=== PATIENT | male | born 1945 | race African-American/Black ===

== ENCOUNTER 2017-06-10 07:46 | Emergency (ER) | payer MEDICARE, MEDICAID ==
[~2017-06-10] VITALS: Ht 175.3 cm; Wt 76.2 kg
[~2017-06-10 07:46] MED LIST: ALBUTEROL SULF8.5 GM INH; AMLODIPINE BESYL5 MG ORAL; BENAZEPRIL HCL20 MG ORAL; HYDROCHLOROTHIA25 MG ORAL; KEFLEX500 MG ORAL; LOVASTATIN20 MG ORAL; NORCO 5-325 TA1 EACH ORAL; ZETIA10 MG ORAL; ZITHROMAX250 MG ORAL
[2017-06-10 08:04] VITALS: BP 133/66
[2017-06-10] MEDS ORDERED: Acetaminophen 500mg (ES) tab PO ONE (08:15)
[2017-06-10] MEDS ORDERED: TYLENOL EXTRA500 MG ORAL (08:45)
[2017-06-10 08:57] VITALS: BP 133/66
--- NOTE | 2017-06-10 09:01 | Emergency Room Report ---
History of Present Illness General Chief Complaint: Pain Source: Patient, Medical Record Present Illness HPI 72-year-old male presents ED complaining of right shoulder pain x2 months. Denies any injuries. Pain is 7/10, radiating through the neck. Sharp. Worse with abducting the shoulder. No other aggravating factors. Denies any other associated symptoms Allergies: Coded Allergies: No Known Allergies (Unverified , 10/28/13) Patient History Past Medical History: none Past Surgical History: none Pertinent Family History: none Social History: Denies: smoking, alcohol use, drug use Immunizations: UTD Reviewed Nursing Documentation: PMH: Agreed, PSxH: Agreed Nursing Documentation-PMH Past Medical History: No History, Except For Hx Cardiac Problems: Yes - cholesterol Hx Hypertension: Yes Review of Systems All Other Systems: negative except mentioned in HPI Physical Exam Vital Signs Date Time Temp Pulse Resp B/P (MAP) Pulse Ox O2 Delivery O2 Flow Rate FiO2 06/10/17 07:59 97.5 69 18 133/66 100 Room Air Sp02 EP Interpretation: reviewed, normal General Appearance: no apparent distress, alert, GCS 15, non-toxic Head: normocephalic Eyes: bilateral eye normal inspection, bilateral eye PERRL ENT: normal ENT inspection Neck: full range of motion, supple, no meningismus, no bony tend, supple/symm/ no masses, tender lateral Respiratory: normal inspection Cardiovascular #1: normal inspection Gastrointestinal: normal inspection Rectal: deferred Genitourinary: no CVA tenderness Musculoskeletal: normal inspection, decreased range of motion - R shoulder, tender Neurologic: normal inspection Psychiatric: normal inspection Skin: normal inspection Lymphatic: normal inspection Medical Decision Making Diagnostic Impression: Primary Impression: Shoulder pain Qualified Codes: M25.511 - Pain in right shoulder ER Course Hospital Course 72-year-old M presents to ED complaining of R shoulder pain Differential diagnoses include: Fracture, dislocation, sprain, contusion Clinical course Patient placed on stretcher. After initial history and physical, I ordered pain medications and Xrays of R shoulder Xrays prelim read shows no acute fracture/dislocation. possibly rotator cuff injury vs tendinitis Plan followup with orthopedics. ice, pain meds, rest. States he did not have a PMD. i will give him referrals for PMD and orthopedics Diagnosis - shoulder pain Stable and discharged to home with prescription for tylenol. apply ice, keep elevated. weight bear as tolerated. Followup with PMD/ortho. Return to ED if symptoms recur or worsen Other X-Ray Diagnostic Results Other X-Ray Diagnostic Results : X-Ray ordered: R shoulder # of Views/Limited Vs Complete: 3 View Indication: Pain EP Interpretation: Yes Interpretation: no dislocation, no soft tissue swelling, no fractures Impression: No acute disease Electronically Signed by: Electronically signed by Matheus Bateman MD Last Vital Signs Date Time Temp Pulse Resp B/P (MAP) Pulse Ox O2 Delivery O2 Flow Rate FiO2 06/10/17 08:54 97.5 06/10/17 08:04 18 133/66 100 Room Air 06/10/17 07:59 69 Status: improved Disposition: HOME, SELF-CARE Condition: Stable Scripts Acetaminophen* (TYLENOL EXTRA STRENGTH*) 500 Mg Tablet 500 MG ORAL Q8H Y for Prn Headache/Temp > 101, #30 TAB 0 Refills Prov: MATHEUS BATEMAN M.D. 06/10/17 Referrals: LISA [facility]/,REFERRING (PCP) Pancho Juarez MD Patient Instructions: Shoulder Pain, [id number] MATHEUS BATEMAN M.D. Jun 10, 2017 09:01
--- NOTE | 2017-06-11 10:28 | Diagnostic Imaging Report ---
Indication: Reason For Exam: PAIN Technique: 3 views of the left shoulder Comparison: None Findings: No acute fractures or dislocations. Joint spaces are preserved. Impression: Negative
== END 2017-06-10 08:59 | disposition home or self-care (01) ==
LOC: EMR 08:19
DX: M25.511 Pain in right shoulder (principal); I10 Essential (primary) hypertension
CPT/HCPCS: 99283

== ENCOUNTER 2017-11-30 07:35 | Emergency (ER) | payer MEDICARE, MEDICAID ==
[~2017-11-30] VITALS: Ht 175.3 cm; Wt 74.8 kg
[~2017-11-30 07:35] MED LIST changes: +TYLENOL EXTRA500 MG ORAL
--- NOTE | 2017-11-30 08:06 | Emergency Room Report ---
History of Present Illness General Chief Complaint: Gastrointestinal Bleed Source: Patient Present Illness HPI Patient is a 72-year-old male who presented after increased rectal bleeding. Patient reports having bright red blood per rectum. Patient reported having recently he is feeling more dizzy and lightheaded. He reports having constipation. He states this had negative colonoscopy in the past. This is approximately 5 years ago. The patient denies any anticoagulant use. He states he occasionally takes meloxicam. He does not take aspirin or Plavix regularly. The patient was having some lower abdominal pain. He reports having some constipation. Allergies: Coded Allergies: No Known Allergies (Unverified , 10/28/13) Patient History Past Medical History: see triage record Reviewed Nursing Documentation: PMH: Agreed; PSxH: Agreed Nursing Documentation-PMH Past Medical History: No History, Except For Hx Cardiac Problems: Yes - high cholesterol, enlarged prostate Hx Hypertension: Yes Review of Systems All Other Systems: negative except mentioned in HPI Physical Exam Vital Signs Date Time Temp Pulse Resp B/P (MAP) Pulse Ox O2 Delivery O2 Flow Rate FiO2 11/30/17 07:39 98.0 69 18 147/75 98 Room Air 98.1 Sp02 EP Interpretation: reviewed, normal General Appearance: normal inspection, well appearing, no apparent distress, alert Head: atraumatic ENT: normal ENT inspection, hearing grossly normal, normal voice Neck: normal inspection, full range of motion, supple, no bony tend Respiratory: normal inspection, lungs clear, normal breath sounds, no respiratory distress, no retraction, no wheezing Cardiovascular #1: regular rate, rhythm, no edema Gastrointestinal: normal inspection, normal bowel sounds, non tender, soft, no guarding, no hernia Rectal: normal exam, normal rectal tone, heme positive stool, other - no gross blood, no stool in vault Genitourinary: no CVA tenderness Musculoskeletal: normal inspection, back normal, normal range of motion Neurologic: normal inspection, alert, oriented x3, responsive, 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 The differential diagnosis included but was not limited to ulcer, diverticulosis, aortic aneurysm, hemorrhoid, fissure, arteriovenous formation, coagulopathy, cancer among others. Because of complexity of patient's case laboratory testing and imaging studies were ordered.The laboratory testing was initial normal hemoglobin. Repeat low hemoglobin was noted to have a drop with minimal IV fluids. The patient was advised risk benefits alternatives of leaving the hospital and he indicated understanding. Discussed the patient that I believe he needed hospitalization for further management and monitoring.The patient was advised risk benefits alternatives of leaving AGAINST MEDICAL ADVICE and he indicated understanding and all questions are answered patient still continued want to leave and signed AGAINST MEDICAL ADVICE. Despite risks including but not limited to disability and worsening of current lifestyle. Labs Test 11/30/17 08:00 11/30/17 08:05 11/30/17 10:00 Prothrombin Time 9.6 SEC (9.30-11.50) Prothromb Time International Ratio 0.9 (0.9-1.1) Activated Partial Thromboplast Time 27 SEC (23-33) Sodium Level 135 MMOL/L (136-145) Potassium Level 3.6 MMOL/L (3.5-5.1) Chloride Level 99 MMOL/L (98-107) Carbon Dioxide Level 28 MMOL/L (21-32) Anion Gap 8 mmol/L (5-15) Blood Urea Nitrogen 12 mg/dL (7-18) Creatinine 1.4 MG/DL (0.55-1.30) Estimat Glomerular Filtration Rate mL/min (>60) Glucose Level 97 MG/DL (74-106) Calcium Level 9.4 MG/DL (8.5-10.1) Total Bilirubin 0.2 MG/DL (0.2-1.0) Aspartate Amino Transf (AST/SGOT) 21 U/L (15-37) Alanine Aminotransferase (ALT/SGPT) 24 U/L (12-78) Alkaline Phosphatase 76 U/L (46-116) Ammonia < 10 umol/L (11-32) Total Protein 7.9 G/DL (6.4-8.2) Albumin 4.1 G/DL (3.4-5.0) Globulin 3.8 g/dL Albumin/Globulin Ratio 1.1 (1.0-2.7) Lipase 88 U/L (73-393) Urine Color Pale yellow Urine Appearance Clear Urine pH 7 (4.5-8.0) Urine Specific [place] 1.010 (1.005-1.035) Urine Protein Negative (NEGATIVE) Urine Glucose (UA) Negative (NEGATIVE) Urine Ketones Negative (NEGATIVE) Urine Occult Blood 2+ (NEGATIVE) Urine Nitrite Negative (NEGATIVE) Urine Bilirubin Negative (NEGATIVE) Urine Urobilinogen Normal MG/DL (0.0-1.0) Urine Leukocyte Esterase Negative (NEGATIVE) Urine RBC 2-4 /HPF (0 - 0) Urine WBC 0-2 /HPF (0 - 0) Urine Squamous Epithelial Cells Occasional /LPF Urine Bacteria Occasional /HPF (NONE) White Blood Count 4.8 K/UL (4.8-10.8) Red Blood Count 4.48 M/UL (4.70-6.10) Hemoglobin 12.9 G/DL (14.2-18.0) Hematocrit 38.5 % (42.0-52.0) Mean Corpuscular Volume 86 FL (80-99) Mean Corpuscular Hemoglobin 28.9 PG (27.0-31.0) Mean Corpuscular Hemoglobin Concent 33.6 G/DL (32.0-36.0) Red Cell Distribution Width 12.1 % (11.6-14.8) Platelet Count 224 K/UL (150-450) Mean Platelet Volume 6.8 FL (6.5-10.1) Neutrophils (%) (Auto) 52.4 % (45.0-75.0) Lymphocytes (%) (Auto) 37.1 % (20.0-45.0) Monocytes (%) (Auto) 6.3 % (1.0-10.0) Eosinophils (%) (Auto) 2.3 % (0.0-3.0) Basophils (%) (Auto) 1.9 % (0.0-2.0) Last Vital Signs Date Time Temp Pulse Resp B/P (MAP) Pulse Ox O2 Delivery O2 Flow Rate FiO2 11/30/17 07:39 98.0 69 18 147/75 98 Room Air 98.1 Status: unchanged Disposition: AGAINST MEDICAL ADVICE Condition: Serious Scripts Omeprazole (OMEPRAZOLE) 20 Mg Capsule. 20 MG ORAL DAILY, #30 CAP Prov: Preston Vazquez MD 11/30/17 Preston Vazquez MD Nov 30, 2017 08:06
[2017-11-30 08:12] VITALS: BP 133/69
[2017-11-30] MEDS ORDERED: Pantoprazole Inj IVP ONE (08:15)
[2017-11-30 08:24] LABS: BASOPHILS % (AUTO) 2.2 % (0.0-2.0); EOSINOPHILS % (AUTO) 2.3 % (0.0-3.0); HEMATOCRIT 40.7 % (42.0-52.0); HEMOGLOBIN 13.8 G/DL (14.2-18.0); LYMPHOCYTES % (AUTO) 33.8 % (20.0-45.0); MEAN CORPUSCULAR VOLUME 86 FL (80-99); MONOCYTES % (AUTO) 9.6 % (1.0-10.0); NEUTROPHILS % (AUTO) 52.1 % (45.0-75.0); PLATELET COUNT 255 K/UL (150-450); RED BLOOD COUNT 4.74 M/UL (4.70-6.10); RED CELL DISTRIBUTION WIDTH 12.1 % (11.6-14.8); WHITE BLOOD COUNT 4.6 K/UL (4.8-10.8)
[2017-11-30 08:25] LABS: APPEARANCE,URINE CLEAR; BILIRUBIN, URINE NEGATIVE (NEGATIVE); COLOR,URINE PALE YELLOW; GLUCOSE, URINE (UA) NEGATIVE (NEGATIVE); KETONES,URINE NEGATIVE (NEGATIVE); LEUKOCYTE ESTERASE ,URINE NEGATIVE (NEGATIVE); NITRITE,URINE NEGATIVE (NEGATIVE); PH,URINE 7 (4.5-8.0); PROTEIN,URINE NEGATIVE (NEGATIVE); UROBILINOGEN,URINE NORMAL MG/DL (0.0-1.0)
[2017-11-30 08:31] LABS: INR 0.9 (0.9-1.1)
[2017-11-30 08:45] LABS: ANION GAP 8 mmol/L (5-15); BLOOD UREA NITROGEN 12 mg/dL (7-18); CALCIUM 9.4 MG/DL (8.5-10.1); CARBON DIOXIDE 28 MMOL/L (21-32); CHLORIDE 99 MMOL/L (98-107); CREATININE 1.4 MG/DL (0.55-1.30); POTASSIUM 3.6 MMOL/L (3.5-5.1); SODIUM 135 MMOL/L (136-145)
[2017-11-30] MEDS ORDERED: Sodium Chloride 500ML 500 ML IV ONE (08:45)
[2017-11-30 08:48] LABS: AMMONIA < 10 umol/L (11-32)
[2017-11-30 08:50] LABS: ALANINE AMINOTRANSFERASE 24 U/L (12-78); ALBUMIN 4.1 G/DL (3.4-5.0); ALBUMIN/GLOBULIN RATIO 1.1 (1.0-2.7); ALKALINE PHOSPHATASE 76 U/L (46-116); ASPARTATE AMINO TRANSFERASE 21 U/L (15-37); BILIRUBIN,TOTAL 0.2 MG/DL (0.2-1.0)
[2017-11-30 10:17] LABS: BASOPHILS % (AUTO) 1.9 % (0.0-2.0); EOSINOPHILS % (AUTO) 2.3 % (0.0-3.0); HEMATOCRIT 38.5 % (42.0-52.0); HEMOGLOBIN 12.9 G/DL (14.2-18.0); LYMPHOCYTES % (AUTO) 37.1 % (20.0-45.0); MEAN CORPUSCULAR VOLUME 86 FL (80-99); MONOCYTES % (AUTO) 6.3 % (1.0-10.0); NEUTROPHILS % (AUTO) 52.4 % (45.0-75.0); PLATELET COUNT 224 K/UL (150-450); RED BLOOD COUNT 4.48 M/UL (4.70-6.10); RED CELL DISTRIBUTION WIDTH 12.1 % (11.6-14.8); WHITE BLOOD COUNT 4.8 K/UL (4.8-10.8)
[2017-11-30] MEDS ORDERED: OMEPRAZOLE20 M2 ORAL (10:27)
[2017-11-30 10:44] VITALS: BP 130/73
[2017-12-01] MEDS ORDERED: MELOXICAM7.5 MG/5 M ORAL (14:16)
== END 2017-11-30 10:44 | disposition left against medical advice (07) ==
LOC: EMR 08:08
DX: K92.2 Gastrointestinal hemorrhage, unspecified (principal); I10 Essential (primary) hypertension
CPT/HCPCS: 36415; 80053; 81003; 82140; 83690; 85025; 85610; 85730; 86850; 86900; 86901; 96360; 96374; 96375; 99283

== ENCOUNTER 2017-12-01 11:08 | Inpatient (IN) | payer MEDICARE, MEDICAID ==
[~2017-12-01] VITALS: Ht 175.3 cm; Wt 74.8 kg
[~2017-12-01 11:08] MED LIST changes: +OMEPRAZOLE20 M2 ORAL
[2017-12-01 11:40] VITALS: BP 148/77
[2017-12-01 11:41] LABS: APPEARANCE,URINE CLEAR; BILIRUBIN, URINE NEGATIVE (NEGATIVE); COLOR,URINE PALE YELLOW; GLUCOSE, URINE (UA) NEGATIVE (NEGATIVE); KETONES,URINE NEGATIVE (NEGATIVE); LEUKOCYTE ESTERASE ,URINE 1+ (NEGATIVE); NITRITE,URINE NEGATIVE (NEGATIVE); PH,URINE 7 (4.5-8.0); PROTEIN,URINE NEGATIVE (NEGATIVE); UROBILINOGEN,URINE NORMAL MG/DL (0.0-1.0)
[2017-12-01 11:46] LABS: BASOPHILS % (AUTO) 2.3 % (0.0-2.0); EOSINOPHILS % (AUTO) 1.4 % (0.0-3.0); HEMATOCRIT 42.6 % (42.0-52.0); HEMOGLOBIN 13.8 G/DL (14.2-18.0); LYMPHOCYTES % (AUTO) 38.9 % (20.0-45.0); MEAN CORPUSCULAR VOLUME 85 FL (80-99); MONOCYTES % (AUTO) 7.1 % (1.0-10.0); NEUTROPHILS % (AUTO) 50.3 % (45.0-75.0); PLATELET COUNT 269 K/UL (150-450); RED CELL DISTRIBUTION WIDTH 11.8 % (11.6-14.8); WHITE BLOOD COUNT 5.8 K/UL (4.8-10.8)
[2017-12-01 11:54] LABS: INR 0.9 (0.9-1.1)
[2017-12-01 11:55] LABS: ANION GAP 9 mmol/L (5-15); BLOOD UREA NITROGEN 10 mg/dL (7-18); CALCIUM 9.2 MG/DL (8.5-10.1); CARBON DIOXIDE 25 MMOL/L (21-32); CHLORIDE 98 MMOL/L (98-107); CREATININE 1.4 MG/DL (0.55-1.30); POTASSIUM 3.5 MMOL/L (3.5-5.1); SODIUM 132 MMOL/L (136-145)
[2017-12-01 12:09] LABS: ALANINE AMINOTRANSFERASE 21 U/L (12-78); ALBUMIN 4.2 G/DL (3.4-5.0); ALBUMIN/GLOBULIN RATIO 1.1 (1.0-2.7); ALKALINE PHOSPHATASE 67 U/L (46-116); ASPARTATE AMINO TRANSFERASE 23 U/L (15-37); BILIRUBIN,TOTAL 0.4 MG/DL (0.2-1.0); CKMB 1.1 NG/ML (0.0-3.6); CREATINE KINASE 157 U/L (26-308)
[2017-12-01 13:36] VITALS: BP 132/68
[2017-12-01] MEDS ORDERED: MELOXICAM7.5 MG/5 M ORAL (14:16)
[2017-12-01] MEDS ORDERED: Acetaminophen 500mg (ES) tab ORAL PRN (15:30)
[2017-12-01] MEDS ORDERED: Norco 5mg/325mg tab ORAL PRN (15:30)
[2017-12-01] MEDS ORDERED: Magnesium Citrate Liq Btl ORAL SCH (16:00)
[2017-12-01] MEDS ORDERED: Polyethylene Glycol 238gm bottle ORAL SCH (16:00)
[2017-12-01] MEDS ORDERED: Bisacodyl EC 5mg tab ORAL SCH (16:00)
--- NOTE | 2017-12-01 16:02 | Diagnostic Imaging Report ---
Indication: Chest pain Technique: One view of the chest Comparison: 09/07/2015 Findings: Lungs and pleural spaces are clear. Heart size is normal. No significant interim change Impression: No acute process
--- NOTE | 2017-12-01 16:42 | GI Initial Consult Note ---
History of Present Illness General Date patient seen: Dec 01, 2017 Time patient seen: 16:00 Reason for Hospitalization: Chest Pain Referring physician: EILEEN Reason for Consultation: RECTAL BLEEDING / BLACK STOOLS Present Illness HPI 72 year old male patient, ambulatory came in from home c/o of pressure like chest pain that started this morning. The patient was here yesterday for rectal bleeding, had complaints of bright red stool prior followed by dark tarry stools the next day. Time of onset unknown. Denies any recent travel histories. Hx of HTN, HLD, BPH. Last colonoscopy was performed over 8 years ago. Presents today with mild anemia, hyponatremia and renal insufficiency. Utox was negative. Home Meds Active Scripts Omeprazole (OMEPRAZOLE) 20 Mg Capsule.dr, 20 MG ORAL DAILY, #30 CAP Prov:Preston Vazquez MD 11/30/17 Acetaminophen* (TYLENOL EXTRA STRENGTH*) 500 Mg Tablet, 500 MG ORAL Q8H PRN for Prn Headache/Temp > 101, #30 TAB 0 Refills Prov:Matheus Bateman MD 06/10/17 Albuterol Sulfate* (ALBUTEROL SULFATE MDI*) 8.5 Gm Hfa.aer.ad, 2 PUFF INH Q4H, # 1 INH 0 Refills Prov:Rina Holland DO 09/07/15 Azithromycin* (ZITHROMAX*) 250 Mg Tablet, 250 MG ORAL once daily, #6 TAB 0 Refills Take two tables once daily for 1 day, then one tablet once daily for 4 days. Prov:Rina Holland DO 09/07/15 Cephalexin* (KEFLEX*) 500 Mg Capsule, 500 MG ORAL BID for 7 Days, CAP Prov:SALMA VENEGAS M.D. 05/27/15 Hydrocodone Bit/Acetaminophen 5-325* (NORCO 5-325*) 1 Each Tablet, 1 TAB ORAL Q6H PRN for For Pain, #20 TAB Prov:TOVA DRAKE M.D. 10/28/13 Reported Medications Meloxicam (MELOXICAM) 7.5 Mg/5 Ml Oral.susp, 7.5 MG ORAL PRN, #100 ML 0 Refills 12/01/17 Ezetimibe (ZETIA*) 10 Mg Tablet, ORAL BEDTIME, TAB 12/5/15 Lovastatin (LOVASTATIN) 20 Mg Tablet, 20 MG ORAL BEDTIME, #30 TAB 0 Refills 10/28/13 Amlodipine Besylate* (AMLODIPINE BESYLATE*) 5 Mg Tablet, 5 MG ORAL DAILY, TAB 10/28/13 Benazepril Hcl* (BENAZEPRIL HCL*) 20 Mg Tablet, 20 MG ORAL DAILY, TAB 10/28/13 Hydrochlorothiazide* (HYDROCHLOROTHIAZIDE*) 25 Mg Tablet, 25 MG ORAL DAILY, TAB 10/28/13 Med list reviewed/reconciled: Yes Allergies: Coded Allergies: No Known Allergies (Unverified , 10/28/13) Patient History History Provided By: Patient, Medical Record PMH Narrative see HPI Social History: Denies: smoking, alcohol use, drug use, other Review of Systems All Other Systems: negative except mentioned in HPI Physical Exam Vital Signs Date Time Temp Pulse Resp B/P (MAP) Pulse Ox O2 Delivery O2 Flow Rate FiO2 12/01/17 11:13 97.7 77 148/77 97.7 12/01/17 11:40 18 98 Room Air Sp02 EP Interpretation: reviewed, normal Labs Laboratory Tests Test 12/01/17 11:28 12/01/17 11:37 Urine Color Pale yellow Urine Appearance Clear Urine pH 7 (4.5-8.0) Urine Specific [place] 1.010 (1.005-1.035) Urine Protein Negative (NEGATIVE) Urine Glucose (UA) Negative (NEGATIVE) Urine Ketones Negative (NEGATIVE) Urine Occult Blood 1+ (NEGATIVE) H Urine Nitrite Negative (NEGATIVE) Urine Bilirubin Negative (NEGATIVE) Urine Urobilinogen Normal MG/DL (0.0-1.0) Urine Leukocyte Esterase 1+ (NEGATIVE) H Urine RBC 0-2 /HPF (0 - 0) H Urine WBC 0-2 /HPF (0 - 0) Urine Squamous Epithelial Cells Few /LPF (NONE/OCC) Urine Bacteria Occasional /HPF (NONE) Urine Opiates Screen Negative (NEGATIVE) Urine Barbiturates Screen Negative (NEGATIVE) Phencyclidine (PCP) Screen Negative (NEGATIVE) Urine Amphetamines Screen Negative (NEGATIVE) Urine Benzodiazepines Screen Negative (NEGATIVE) Urine Cocaine Screen Negative (NEGATIVE) Urine Marijuana (THC) Screen Negative (NEGATIVE) White Blood Count 5.8 K/UL (4.8-10.8) Red Blood Count 5.00 M/UL (4.70-6.10) Hemoglobin 13.8 G/DL (14.2-18.0) L Hematocrit 42.6 % (42.0-52.0) Mean Corpuscular Volume 85 FL (80-99) Mean Corpuscular Hemoglobin 27.5 PG (27.0-31.0) Mean Corpuscular Hemoglobin Concent 32.3 G/DL (32.0-36.0) Red Cell Distribution Width 11.8 % (11.6-14.8) Platelet Count 269 K/UL (150-450) Mean Platelet Volume 6.9 FL (6.5-10.1) Neutrophils (%) (Auto) 50.3 % (45.0-75.0) Lymphocytes (%) (Auto) 38.9 % (20.0-45.0) Monocytes (%) (Auto) 7.1 % (1.0-10.0) Eosinophils (%) (Auto) 1.4 % (0.0-3.0) Basophils (%) (Auto) 2.3 % (0.0-2.0) H Prothrombin Time 9.8 SEC (9.30-11.50) Prothromb Time International Ratio 0.9 (0.9-1.1) Activated Partial Thromboplast Time 25 SEC (23-33) Sodium Level 132 MMOL/L (136-145) L Potassium Level 3.5 MMOL/L (3.5-5.1) Chloride Level 98 MMOL/L (98-107) Carbon Dioxide Level 25 MMOL/L (21-32) Anion Gap 9 mmol/L (5-15) Blood Urea Nitrogen 10 mg/dL (7-18) Creatinine 1.4 MG/DL (0.55-1.30) H Estimat Glomerular Filtration Rate mL/min (>60) Glucose Level 102 MG/DL (74-106) Calcium Level 9.2 MG/DL (8.5-10.1) Total Bilirubin 0.4 MG/DL (0.2-1.0) Aspartate Amino Transf (AST/SGOT) 23 U/L (15-37) Alanine Aminotransferase (ALT/SGPT) 21 U/L (12-78) Alkaline Phosphatase 67 U/L (46-116) Total Creatine Kinase 157 U/L (26-308) Creatine Kinase MB 1.1 NG/ML (0.0-3.6) Creatine Kinase MB Relative Index 0.7 Troponin I 0.000 ng/mL (0.000-0.056) Total Protein 8.0 G/DL (6.4-8.2) Albumin 4.2 G/DL (3.4-5.0) Globulin 3.8 g/dL Albumin/Globulin Ratio 1.1 (1.0-2.7) General Appearance: well appearing, no apparent distress, alert Head: normocephalic EENT: PERRL/EOMI, normal ENT inspection Neck: supple Respiratory: normal breath sounds, no respiratory distress Cardiovascular: normal rate Gastrointestinal: normal inspection, non tender, soft, normal bowel sounds, non -distended Rectal: deferred Genitourinary: deferred Musculoskeletal: normal inspection, back normal Neurologic: normal inspection, alert, oriented x3, responsive Psychiatric: normal inspection, judgement/insight normal, memory normal Skin: normal inspection, normal color, no rash, warm/dry, palpation normal, well hydrated Lymphatic: normal inspection, no adenopathy Current Medications Current Medications Medications (Trade) Dose Ordered Sig/Dk Route PRN Reason Start Time Stop Time Status Last Admin Dose Admin Acetaminophen (Tylenol) 500 mg Q4H PRN ORAL Fever/Headache/Mild Pain 12/01/17 15:30 12/31/17 15:29 Acetaminophen/ Hydrocodone Bitart ([place] 5/325) 1 tab Q6H PRN ORAL pain 4-10 12/01/17 15:30 12/08/17 15:29 Amlodipine Besylate (Norvasc) 5 mg DAILY ORAL 12/02/17 09:00 01/01/18 08:59 Benazepril HCl (Lotensin) 20 mg DAILY ORAL 12/02/17 09:00 01/01/18 08:59 Bisacodyl (Dulcolax) 10 mg ONCE ORAL 12/01/17 16:00 12/01/17 17:00 Magnesium Citrate (Citrate Of Magnesia) 300 ml ONCE ORAL 12/01/17 16:00 12/01/17 17:00 Pantoprazole (Protonix) 40 mg DAILY ORAL 12/02/17 09:00 01/01/18 08:59 Polyethylene Glycol (Miralax) 238 gm ONCE ORAL 12/01/17 16:00 12/01/17 17:00 Sodium Chloride 1,000 ml @ 65 mls/hr [id number] IV 12/01/17 16:00 12/31/17 15:59 GI: Plan Problems: (1) Anemia (2) Dark stools (3) Gastrointestinal bleeding, lower (4) Gastrointestinal hemorrhage Plan EGD/colonoscopy scheduled for tomorrow. - [facility]D, NPO @ [facility]. - hold all blood thinners tonight. anemia work up OB stool r/o GI bleed monitor H&H, prn transfusions bowel regime ppi fu labs Discussed with Dr. Mccann. Thank you for this patient referral, we will follow. The patient was seen and examined at bedside and all new and available data was reviewed in the patients chart. I agree with the above findings, impression and plan. (Patient seen earlier today. Signature stamp does not reflect patient encounter time.). - MD Yuko Le AnhJaniya [employer] Dec 01, 2017 16:42
[2017-12-01 20:00] VITALS: BP 144/82
[2017-12-02] MEDS ORDERED: Benazepril 10mg tab ORAL SCH (09:00)
--- NOTE | 2017-12-02 13:15 | History and Physical Report ---
DATE OF ADMISSION: 12/01/2017 BRIEF HISTORY: The patient a couple of hours after being admitted decided to not to stay and left AMA according to the nurse. Again, I cannot do an H and P because the patient left against medical advice before anybody could see him. The patient did not want to wait and a couple of hours after admission was discharged. He did not want to wait until morning to be seen by doctors. He stated that he did not trust them and he did not want to go to endoscopy suite and at the same time even though the nurses told him that they could do one endoscopy at a time, but again, he and he wanted to leave, so I let this serve as an H and P since we cannot do an H and P since the patient left a couple of hours after admission. He did not want to wait to be seen by a doctor, so again I let this to be served as H and P. For H and P purposes, the patient was admitted for gastritis, , rectal bleeding, creatinine 1.4. Dr. Moreno and Dr. Mccann were consulted, however, the patient was refusing IV and did not want to stay, and left against medical advice, signed the paper, and we cannot do any further H and P from this, so I let this serve as an H and P. Mahesh Kendall M.D. DR: Ganga JOB#: [id number] CC:
--- NOTE | 2017-12-02 14:05 | Cardiology Report ---
APPROVED REPORT EKG Measurement Heart [id number] Normal sinus rhythm Possible Left atrial enlargement Borderline ECG
--- NOTE | 2017-12-03 09:41 | Discharge Summary ---
Discharge Summary Discharge Summary _ DATE OF ADMISSION: 12/01/2017 DATE OF DISCHARGE: 12/01/2017. Patient signed AGAINST MEDICAL ADVICE REASON FOR ADMISSION: 72 years old male with history of hypertension ,hyperlipidemia ,BPH, presented to emergency department with complaint of rectal bleeding. He reported initially bright red stool followed up by the dark tarry stools. He denied recent traveling. He denied fevers, chills. He had colonoscopy done about 8 years ago. Upon evaluation in emergency department, hemoglobin 13.8 , hematocrit 42.6, no leukocytosis ,urine tox screen was negative ,vital signs were stable, urinalysis was negative for UTI. Creatinine 1.4 . Troponin negative. Patient was admitted with diagnosis of lower GI bleeding, anemia, renal insufficiency CONSULTANTS: GI specialist [facility] COURSE: Patient admitted to telemetry floor. Patient started on the IV fluids. GI specialist seen and evaluated the patient. Patient started on clear liquid diet and made nothing by mouth after midnight . EGD and colonoscopy were planned for a morning. All blood thinners were hold . Anemia workup along with stool OB was ordered. Hemoglobin and hematocrit were closely monitored with goal to keep hemoglobin above 7. Bowel regimen instituted . Patient started on PPI. Blood pressure was managed with AMADOR inhibitor and calcium channel vazquez. Patient decided to sign AGAINST MEDICAL ADVICE. He stated that he did not want to have two procedures done at the same day. Calls were placed to GI specialist and attending physician. patient did not want to wait for doctors to call [facility]. The risks and consequences of signing AGAINST MEDICAL ADVICE were discussed with patient. Patient verbalized understanding, signed thr form and left. FINAL DIAGNOSES: Lower GI bleeding Mild anemia Renal insufficiency I have been assigned to dictate discharge summary for this account. I was not involved in the patient's management. Heather Sprague NP Dec 03, 2017 09:41
== END 2017-12-01 23:48 | disposition left against medical advice (07) | DRG 378 ==
LOC: EMR 12:16 → 2E 12:19 → EDBEDREQ 13:03
DX: K92.2 Gastrointestinal hemorrhage, unspecified (principal); E87.1 Hypo-osmolality and hyponatremia; I10 Essential (primary) hypertension; N40.0 Benign prostatic hyperplasia without lower urinary tract symptoms; D64.9 Anemia, unspecified; N28.9 Disorder of kidney and ureter, unspecified
CPT/HCPCS: 36415; 71045; 80053; 80307; 81003; 82140; 82270; 82550; 82553; 83690; 84484; 85025; 85610; 85730; 86850; 86900; 86901; 93005; 93970; 96360; 96374; 96375; 99283; 99285